=== PATIENT | female | born 1965 | race Caucasian/White ===

== ENCOUNTER 2020-04-29 07:46 | Outpatient (CLI) | payer OTHER, SELFPAY ==
--- NOTE | ~2020-04-29 | MM_ITS ---
EXAMINATION: MM screening [facility] BI w steve HISTORY: Screening TECHNIQUE: Craniocaudal and mediolateral oblique 3-D tomosynthesis images were obtained and synthetic 2-D images were generated. CAD analysis was submitted and interpreted. COMPARISON: Comparison to multiple prior studies sequentially, with oldest reviewed study dated 03/23. BREAST PARENCHYMAL COMPOSITION: There are scattered areas of fibroglandular density. FINDINGS: There is no evidence of suspicious mass, calcification, or architectural distortion to sugg est malignancy in either breast. There has been no suspicious interval change. IMPRESSION: 1. No mammographic evidence of malignancy. 2. Recommend routine screening mammography in one year. BI-RADS Category 1: Negative Reviewed, dictated and finalized at location A.
== END 2020-04-29 07:47 | disposition home or self-care (01) ==
PROVIDERS: PCP Family Medicine; Visit Provider Family Medicine
DX: Z12.31 Encounter for screening mammogram for malignant neoplasm of breast (principal)
CPT/HCPCS: 77063; 77067

== ENCOUNTER 2020-07-21 06:42 | Outpatient (NON) | payer OTHER, SELFPAY ==
[2020-07-24 01:47] LABS: SARS-CoV-2 RNA PCR Negative
== END 2020-07-21 06:43 ==
LOC: ANHCOVIDDT 06:56
PROVIDERS: PCP Family Medicine; Visit Provider Family Medicine
DX: Z20.828 Contact with and (suspected) exposure to other viral communicable diseases (principal)
CPT/HCPCS: 87635; C9803; U0003

== ENCOUNTER 2020-09-23 14:51 | Outpatient (CLI) | payer OTHER, SELFPAY ==
[2020-09-23 15:57] LABS: Basophils Percent Auto 0.4 % (0.2-1.2); Eosinophils Absolute Auto 0.2 K/mm3 (0-0.3); Eosinophils Percent Auto 2.1 % (0-4.4); Hematocrit 38.9 % (37.0-47.0); Hemoglobin 13.2 g/dL (12.0-15.0); Immature Granulocyte Absolute 0.03 K/mm3 (0.00-0.031); Immature Granulocyte Percent A 0.3 % (0-0.5); Lymphocytes Absolute Auto 2.88 K/mm3 (0.9-3.2); Lymphocytes Percent Auto 27.1 % (18.3-44.2); Mean Corpuscular HGB Conc 33.9 g/dl (32-36); Mean Corpuscular Hemoglobin 31.9 pg (26-34); Mean Platelet Volume 10.3 fl (7.4-10.4); Monocytes Absolute Auto 0.8 K/mm3 (0.1-0.6); Monocytes Percent Auto 7.9 % (2.6-8.5); Neutrophils Absolute Auto 6.6 K/mm3 (1.3-6.7); Neutrophils Percent Auto 62.2 % (45.5-73.1); Platelet Count Result 316 k/mm3 (150-375); Red Blood Count 4.14 M/mm3 (4.2-5.4); Red Cell Distribution Width 12.3 % (11.5-14.5); White Blood Count 10.6 K/mm3 (4.5-10.0)
[2020-09-23 16:30] LABS: Iron 84 ug/dL (37-170)
[2020-09-23 16:40] LABS: Percent Iron Saturation 27 % (20-50)
[2020-09-23 17:06] LABS: Folic Acid 14.6 ng/mL (2.76->20)
[2020-09-24 09:43] LABS: Hemoglobin A1C 5.5 % (<5.7)
== END 2020-09-23 14:52 | disposition home or self-care (01) ==
LOC: ANHLAB 14:53
PROVIDERS: Family Provider Family Medicine; PCP Family Medicine; Visit Provider Family Medicine
DX: D64.9 Anemia, unspecified (principal); R73.01 Impaired fasting glucose
CPT/HCPCS: 36415; 82607; 82728; 82746; 83036; 83540; 83550; 85025

== ENCOUNTER 2020-12-10 16:01 | Outpatient (CLI) | payer OTHER, SELFPAY ==
[2020-12-10 16:41] LABS: Basophils Percent Auto 0.5 % (0.2-1.2); Eosinophils Absolute Auto 0.2 K/mm3 (0-0.3); Eosinophils Percent Auto 2.3 % (0-4.4); Hematocrit 43.4 % (37.0-47.0); Hemoglobin 14.5 g/dL (12.0-15.0); Immature Granulocyte Absolute 0.03 K/mm3 (0.00-0.031); Immature Granulocyte Percent A 0.4 % (0-0.5); Lymphocytes Absolute Auto 2.35 K/mm3 (0.9-3.2); Lymphocytes Percent Auto 29.4 % (18.3-44.2); Mean Corpuscular HGB Conc 33.4 g/dl (32-36); Mean Corpuscular Hemoglobin 31.6 pg (26-34); Mean Corpuscular Volume 94.6 fl (80-100); Mean Platelet Volume 10.6 fl (7.4-10.4); Monocytes Absolute Auto 0.8 K/mm3 (0.1-0.6); Monocytes Percent Auto 9.5 % (2.6-8.5); Neutrophils Absolute Auto 4.6 K/mm3 (1.3-6.7); Neutrophils Percent Auto 57.9 % (45.5-73.1); Platelet Count Result 242 k/mm3 (150-375); Red Blood Count 4.59 M/mm3 (4.2-5.4); Red Cell Distribution Width 12.1 % (11.5-14.5)
[2020-12-10 16:52] LABS: Alanine Aminotransferase 39 U/L (4-35); Albumin Level 4.7 g/dL (3.5-5.1); Alkaline Phosphatase 83 U/L (38-126); Anion Gap 8 mmol/L (8-16); Aspartate Amino Transferase 38 U/L (14-36); Bilirubin,Total 0.5 mg/dL (0.2-1.3); Blood Urea Nitrogen 26 mg/dL (7-17); Calcium 9.5 mg/dL (8.4-10.2); Carbon Dioxide 28 mmol/L (22-30); Chloride 103 mmol/L (98-107); Cholesterol 313 mg/dL (0-200); Estimated Glomerular Filt Rate > 60; Glucose 105 mg/dL (65-105); HDL Direct 44 mg/dL; Potassium 3.9 mmol/L (3.4-5.0); Sodium 139 mmol/L (137-145); Triglycerides 336 mg/dL (<150)
[2020-12-10 17:03] LABS: LDL Cholesterol Direct 159 mg/dL
== END 2020-12-10 16:02 | disposition home or self-care (01) ==
PROVIDERS: PCP Family Medicine; Visit Provider Family Medicine
DX: E55.9 Vitamin D deficiency, unspecified (principal); E78.2 Mixed hyperlipidemia
CPT/HCPCS: 36415; 80053; 80061; 82306; 84443; 85025

== ENCOUNTER 2021-06-24 07:29 | Outpatient (CLI) | payer OTHER, SELFPAY ==
--- NOTE | ~2021-06-24 | MM_ITS ---
EXAMINATION: MM screening earl BI w steve HISTORY: Screening mammogram TECHNIQUE: Craniocaudal and mediolateral oblique 3-D tomosynthesis images were obtained and synthetic 2-D images were generated. CAD analysis was submitted and interpreted. COMPARISON: 05/26/2020, 04/17/2019, 04/11/2018 bilateral screening mammogram examinations BREAST PARENCHYMAL COMPOSITION: There are scattered areas of fibroglandular density. FINDINGS: There is no evidence of suspicious mass, calcification, or architectural distortion to sugg est malignancy in either breast. There has been no suspicious interval change. IMPRESSION: 1. No mammographic evidence of malignancy. 2. Recommend routine screening mammography in one year. BI-RADS Category 1: Negative Reviewed, dictated and finalized at location A.
== END 2021-06-24 07:30 | disposition home or self-care (01) ==
LOC: ANHIMG 07:32
PROVIDERS: PCP Family Medicine; Visit Provider Family Medicine
DX: Z12.31 Encounter for screening mammogram for malignant neoplasm of breast (principal)
CPT/HCPCS: 77063; 77067

== ENCOUNTER 2021-09-20 07:53 | Outpatient (CLI) | payer OTHER, SELFPAY ==
[2021-09-20 09:05] LABS: Basophils Absolute Auto 0.1 K/mm3 (0.0-0.1); Basophils Percent Auto 0.8 % (0.2-1.2); Eosinophils Absolute Auto 0.2 K/mm3 (0-0.3); Eosinophils Percent Auto 2.3 % (0-4.4); Hematocrit 41.9 % (37.0-47.0); Hemoglobin 13.9 g/dL (12.0-15.0); Immature Granulocyte Absolute 0.03 K/mm3 (0.00-0.031); Immature Granulocyte Percent A 0.5 % (0-0.5); Lymphocytes Absolute Auto 1.74 K/mm3 (0.9-3.2); Lymphocytes Percent Auto 27.1 % (18.3-44.2); Mean Corpuscular HGB Conc 33.2 g/dl (32-36); Mean Corpuscular Hemoglobin 31.2 pg (26-34); Mean Corpuscular Volume 93.9 fl (80-100); Mean Platelet Volume 10.6 fl (7.4-10.4); Monocytes Absolute Auto 0.6 K/mm3 (0.1-0.6); Monocytes Percent Auto 9.8 % (2.6-8.5); Neutrophils Absolute Auto 3.8 K/mm3 (1.3-6.7); Neutrophils Percent Auto 59.5 % (45.5-73.1); Platelet Count Result 290 k/mm3 (150-375); Red Blood Count 4.46 M/mm3 (4.2-5.4); Red Cell Distribution Width 12.5 % (11.5-14.5); White Blood Count 6.4 K/mm3 (4.5-10.0)
[2021-09-20 09:16] LABS: Alanine Aminotransferase 37 U/L (4-35); Albumin Level 4.6 g/dL (3.5-5.1); Alkaline Phosphatase 104 U/L (38-126); Anion Gap 8 mmol/L (8-16); Aspartate Amino Transferase 30 U/L (14-36); Bilirubin,Total 0.8 mg/dL (0.2-1.3); Blood Urea Nitrogen 14 mg/dL (7-17); Calcium 9.4 mg/dL (8.4-10.2); Carbon Dioxide 29 mmol/L (22-30); Chloride 103 mmol/L (98-107); Cholesterol 267 mg/dL (0-200); Estimated Glomerular Filt Rate > 60; Glucose 105 mg/dL (65-110); HDL Direct 48 mg/dL; Sodium 140 mmol/L (137-145); Triglycerides 176 mg/dL (<150)
[2021-09-20 09:31] LABS: LDL Cholesterol Direct 176 mg/dL
[2021-09-20 09:53] LABS: Vitamin D 25 Hydroxy 24.7 ng/mL
== END 2021-09-20 07:54 | disposition home or self-care (01) ==
PROVIDERS: PCP Family Medicine; Visit Provider Family Medicine
DX: E55.9 Vitamin D deficiency, unspecified (principal); E78.2 Mixed hyperlipidemia
CPT/HCPCS: 36415; 80053; 80061; 82306; 85025

== ENCOUNTER 2021-09-26 13:01 | Outpatient (CLI) | payer OTHER, SELFPAY ==
[2021-09-26 13:20] LABS: Basophils Absolute Auto 0.1 K/mm3 (0.0-0.1); Basophils Percent Auto 0.5 % (0.2-1.2); Eosinophils Absolute Auto 0.1 K/mm3 (0-0.3); Eosinophils Percent Auto 1.4 % (0-4.4); Hematocrit 42.3 % (37.0-47.0); Hemoglobin 13.8 g/dL (12.0-15.0); Immature Granulocyte Absolute 0.02 K/mm3 (0.00-0.031); Immature Granulocyte Percent A 0.2 % (0-0.5); Lymphocytes Percent Auto 23.7 % (18.3-44.2); Mean Corpuscular HGB Conc 32.6 g/dl (32-36); Mean Corpuscular Hemoglobin 31.4 pg (26-34); Mean Corpuscular Volume 96.4 fl (80-100); Mean Platelet Volume 10.2 fl (7.4-10.4); Monocytes Absolute Auto 0.6 K/mm3 (0.1-0.6); Monocytes Percent Auto 6.8 % (2.6-8.5); Neutrophils Absolute Auto 6.3 K/mm3 (1.3-6.7); Neutrophils Percent Auto 67.4 % (45.5-73.1); Platelet Count Result 289 k/mm3 (150-375); Red Blood Count 4.39 M/mm3 (4.2-5.4); Red Cell Distribution Width 12.5 % (11.5-14.5); White Blood Count 9.3 K/mm3 (4.5-10.0)
[2021-09-26 14:01] LABS: Thyroid Stimulating Hormone 0.823 uIU/mL (0.465-4.680)
[2021-09-26 14:23] LABS: Vitamin B12 > 1000.0 pg/mL (239-931)
== END 2021-09-26 13:02 | disposition home or self-care (01) ==
LOC: ANHLAB 13:04
PROVIDERS: PCP Family Medicine; Visit Provider Family Medicine
DX: E53.8 Deficiency of other specified B group vitamins (principal); R53.83 Other fatigue; E78.2 Mixed hyperlipidemia; E55.9 Vitamin D deficiency, unspecified; R73.01 Impaired fasting glucose
CPT/HCPCS: 36415; 82607; 84443; 85025

== ENCOUNTER 2021-11-29 00:04 | Day surgery (SDC) | payer OTHER, SELFPAY ==
[2021-11-18 12:50] VITALS: BMI 37.3
[2021-11-29 07:57] VITALS: BP 141/94; PULSE 92; RESP 18; TEMP 36.1; O2SAT 95
[2021-11-29] MEDS: LACTATED RINGERS 1,000 ML 150 ML IV CONT (08:00)
--- NOTE | 2021-11-29 08:00 | WPDGICN ---
Assessment and Plan Assessment and plan (1) Encounter for screening colonoscopy: Code(s): Z12.11 - Encounter for screening for malignant neoplasm of colon Status: Acute Assessment and Plan: Patient presents for screening colonoscopy. She appears to be at average risk for colon polyps. Further recommendations will be given after endoscopy. GI Consult Note Consult date/time: 11/29/21 08:00 HPI: Ivet Delaney is a 55 year old female Presents for screening colonoscopy. Patient's current weight appetite bowel movements are normal. She denies abdominal pain. She has had no bleeding. Family history is noncontributory. Patient reports distant history of diverticulitis. Her last colonoscopy was more than 10 years ago. She presents today for neoplasia screening. Review of Systems Review of Systems: All systems reviewed & are unremarkable except as noted in HPI and below PMFSH Social History Social History Smoking packs per day: 1 Smoking cigarettes per day: 20.0 Years smoked: 20 Smoking pack-years: 20.00 Smoking status: Former smoker Tobacco type: cigarettes Alcohol intake: current Substance use: never Substance use type: does not use Living arrangements: with family Spiritual care concerns: No Meds Home Medications and Allergies Home Medications Medication Instructions Recorded Confirmed Type bupropion HCl 300 mg PO DAILY 11/18/21 11/29/21 History Allergies Allergy/AdvReac Type Severity Reaction Status Date / Time Sulfa (Sulfonamide Allergy Intermediate Hives Verified 11/29/21 07:53 Antibiotics) Vital Signs Vital Signs - 24 hr 11/29/21 07:57 Temperature 97 F L Pulse Rate 92 Respiratory Rate 18 Blood Pressure 141/94 H Pulse Oximetry 95 Exam Narrative: Physical exam reveals patient be obese. She is alert vital signs stable. HEENT exam is unremarkable. Lungs are clear. Heart without murmur. Abdomen is obese. Bowel sounds are present soft nontender with no organomegaly. Digital external rectal exam is normal.
--- NOTE | 2021-11-29 08:31 | P.PNAN_ITS ---
Anes - Initial Pre Proc Eval Procedure: Operation Date: 11/29/21 09:00 Proposed Procedures p Screening Colonoscopy - Francis Brown MD Date/Time: 11/29/21 08:31 Surgeon: Francis Brown MD Pre Op Diagnosis: neoplasm screening Patient Data Age: 55 Gender: F Height: 1.7 m Weight: 111.8 kg Last Vital Signs Temp 97 F L 11/29/21 07:57 Pulse 92 11/29/21 07:57 Resp 18 11/29/21 07:57 BP 141/94 H 11/29/21 07:57 Pulse Ox 95 11/29/21 07:57 Allergies Allergy/AdvReac Type Severity Reaction Status Date / Time Sulfa (Sulfonamide Allergy Intermediate Hives Verified 11/29/21 07:53 Antibiotics) Home Medications Medication Instructions Recorded Confirmed Type bupropion HCl 300 mg PO DAILY 11/18/21 11/29/21 History Patient hx anesthesia problems: none Family hx anesthesia problems: none Results Review: All pre-operative results and documents have been reviewed as part of the pre-operative evaluation. [facility], [facility] Social History Social History Smoking packs per day: 1 Smoking cigarettes per day: 20.0 Years smoked: 20 Smoking pack-years: 20.00 Smoking status: Former smoker Tobacco type: cigarettes Alcohol intake: current Substance use: never Substance use type: does not use Living arrangements: with family Spiritual care concerns: No Anes - Eval Final PreProcedure Day of Procedure 11/29/21 08:31 Patient weight: obese Heart: regular rate and rhythm Lungs: clear to auscultation Airway: Mallampati scale class III Neurological: alert and oriented Last oral intake: >/= 8 hours ASA classification: III Emergent: no Anesthetic plan: proceed Anesthesia type and monitoring: general GIVS and standard monitoring Results Review: All pre-operative results and documents have been reviewed as part of the pre-operative evaluation. Informed Consent: The patient's anesthetic plan and its attendant risks and benefits were discussed with the patient/family/POA. Questions were solicited and answers provided to the satisfaction of the patient/family/POA.
[2021-11-29 09:30] VITALS: BP 98/65; PULSE 86; RESP 18; O2SAT 93
[2021-11-29 09:40] VITALS: BP 110/72; PULSE 88; RESP 20; O2SAT 95
[2021-11-29 09:50] VITALS: BP 123/82; PULSE 84; RESP 22; O2SAT 95
== END 2021-11-29 10:00 | disposition home or self-care (01) ==
PROVIDERS: PCP Family Medicine; Visit Provider Internal Medicine Gastroenterology
PROC: 0DJD8ZZ Inspection of Lower Intestinal Tract, Via Natural or Artificial Opening Endoscopic (ICD-10-PCS; CPT 45378; principal; 2021-11-29 09:00)
DX: Z12.11 Encounter for screening for malignant neoplasm of colon (principal); K57.30 Diverticulosis of large intestine without perforation or abscess without bleeding; K52.89 Other specified noninfective gastroenteritis and colitis; K64.8 Other hemorrhoids; Z87.891 Personal history of nicotine dependence; E66.9 Obesity, unspecified; Z68.38 Body mass index [BMI] 38.0-38.9, adult
CPT/HCPCS: 45380; 88305; J2704; J7120

== ENCOUNTER 2022-02-28 10:18 | Outpatient (CLI) | payer OTHER, SELFPAY ==
--- NOTE | 2022-02-28 11:30 | NEURO_ITS ---
Impression: # Complains of pain and numbness of hands. # Normal nerve conduction study. # No Carpal Tunnel Syndrome or ulnar neuropathy. # Normal needle/EMG exam. # Clinical correlation recommended. Nerve Conduction Studies Anti Sensory Summary Table Stim Site NR Peak (ms) P-T Amp (?V) Site1 Site2 Delta-P (ms) Dist (cm) Gumaro (m/s) Left Median Anti Sensory (2-3nd Digit) Wrist 2.9 62.1 Wrist 2-3nd Digit 2.9 14.0 48 Wrist 3.1 85.3 Wrist 2-3nd Digit 2.9 14.0 48 Right Median Anti Sensory (2-3nd Digit) Wrist 3.5 35.5 Wrist 2-3nd Digit 3.5 14.0 40 Wrist 3.5 56.0 Wrist 2-3nd Digit 3.5 14.0 40 Left Radial Anti Sensory (Base 1st Digit) Wrist 1.8 41.3 Wrist Base 1st Digit 1.8 0.0 Right Radial Anti Sensory (Base 1st Digit) Wrist 2.1 34.8 Wrist Base 1st Digit 2.1 0.0 Left Ulnar Anti Sensory (5th Digit) Wrist 2.2 66.0 Wrist 5th Digit 2.2 14.0 64 Right Ulnar Anti Sensory (5th Digit) Wrist 2.3 63.3 Wrist 5th Digit 2.3 14.0 61 Motor Summary Table Stim Site NR Onset (ms) O-P Amp (mV) Site1 Site2 Delta-0 (ms) Dist (cm) Gumaro (m/s) Left Median Motor (Abd Poll Brev) Wrist 2.8 7.3 Elbow Wrist 5.1 29.0 57 Elbow 7.9 6.7 Right Median Motor (Abd Poll Brev) Wrist 3.0 5.0 Elbow Wrist 5.2 28.0 54 Elbow 8.2 4.3 Left Ulnar Motor (Abd Dig Minimi) Wrist 2.4 6.5 A Elbow Wrist 5.0 29.0 58 A Elbow 7.4 5.5 Right Ulnar Motor (Abd Dig Minimi) Wrist 2.0 6.1 A Elbow Wrist 5.0 30.0 60 A Elbow 7.0 7.1 F Wave Studies NR F-Lat (ms) L-R F-Lat (ms) Left Median (Mrkrs) (Abd Poll Brev) 26.64 0.33 Right Median (Mrkrs) (Abd Poll Brev) 26.97 0.33 Left Ulnar (Mrkrs) (Abd Dig Min) 26.41 0.00 Right Ulnar (Mrkrs) (Abd Dig Min) 26.41 0.00 EMG Side Muscle Nerve Root Ins Act Fibs Amp Dur Recrt Comment Right 1stDorInt Ulnar C8-T1 Nml Nml Nml Nml Nml Right Ext Indicis Radial (Post Int) C7-8 Nml Nml Nml Nml Nml Right Ext Digitorum Radial (Post Int) C7-8 Nml Nml Nml Nml Nml Right BrachioRad Radial C5-6 Nml Nml Nml Nml Nml Right PronatorTeres Median C6-7 Nml Nml Nml Nml Nml Right Abd Poll Brev Median C8-T1 Nml Nml Nml Nml Nml Left 1stDorInt Ulnar C8-T1 Nml Nml Nml Nml Nml Left Ext Indicis Radial (Post Int) C7-8 Nml Nml Nml Nml Nml Left Ext Digitorum Radial (Post Int) C7-8 Nml Nml Nml Nml Nml Left BrachioRad Radial C5-6 Nml Nml Nml Nml Nml Left PronatorTeres Median C6-7 Nml Nml Nml Nml Nml Left Abd Poll Brev Median C8-T1 Nml Nml Nml Nml Nml MTDD
== END 2022-02-28 10:19 | disposition home or self-care (01) ==
PROVIDERS: PCP Family Medicine; Visit Provider Family Medicine
DX: R20.0 Anesthesia of skin (principal)
CPT/HCPCS: 95886; 95911

== ENCOUNTER 2022-04-05 07:25 | Outpatient (CLI) | payer OTHER, SELFPAY ==
[2022-04-05 08:00] LABS: Basophils Percent Auto 0.4 % (0.2-1.2); Eosinophils Absolute Auto 0.2 K/mm3 (0-0.3); Eosinophils Percent Auto 2.5 % (0-4.4); Hematocrit 39.1 % (37.0-47.0); Hemoglobin 12.8 g/dL (12.0-15.0); Immature Granulocyte Absolute 0.02 K/mm3 (0.00-0.031); Immature Granulocyte Percent A 0.3 % (0-0.5); Lymphocytes Absolute Auto 1.74 K/mm3 (0.9-3.2); Lymphocytes Percent Auto 25.2 % (18.3-44.2); Mean Corpuscular HGB Conc 32.7 g/dl (32-36); Mean Corpuscular Hemoglobin 31.2 pg (26-34); Mean Corpuscular Volume 95.4 fl (80-100); Mean Platelet Volume 10.7 fl (7.4-10.4); Monocytes Absolute Auto 0.6 K/mm3 (0.1-0.6); Monocytes Percent Auto 8.8 % (2.6-8.5); Neutrophils Absolute Auto 4.3 K/mm3 (1.3-6.7); Neutrophils Percent Auto 62.8 % (45.5-73.1); Platelet Count Result 239 k/mm3 (150-375); Red Cell Distribution Width 12.8 % (11.5-14.5); White Blood Count 6.9 K/mm3 (4.5-10.0)
[2022-04-05 08:20] LABS: Alanine Aminotransferase 29 U/L (6-35); Alkaline Phosphatase 98 U/L (38-126); Anion Gap 10 mmol/L (8-16); Aspartate Amino Transferase 22 U/L (14-36); Bilirubin,Total 0.4 mg/dL (0.2-1.3); Blood Urea Nitrogen 14 mg/dL (7-17); Calcium 9.1 mg/dL (8.4-10.2); Carbon Dioxide 25 mmol/L (22-30); Chloride 102 mmol/L (98-107); Cholesterol 171 mg/dL (0-200); Estimated Glomerular Filt Rate > 60; Glucose 107 mg/dL (65-110); HDL Direct 43 mg/dL; Potassium 4.2 mmol/L (3.4-5.0); Sodium 137 mmol/L (137-145); Triglycerides 174 mg/dL (<150)
[2022-04-05 08:37] LABS: LDL Cholesterol Direct 94 mg/dL
[2022-04-05 10:42] LABS: Vitamin D 25 Hydroxy 59.1 ng/mL
== END 2022-04-05 07:26 | disposition home or self-care (01) ==
LOC: ANHLAB 07:27
PROVIDERS: PCP Family Medicine; Visit Provider Family Medicine
DX: E78.5 Hyperlipidemia, unspecified (principal); Z00.00 Encounter for general adult medical examination without abnormal findings; F41.9 Anxiety disorder, unspecified; F32.A Depression, unspecified; D68.51 Activated protein C resistance; G47.00 Insomnia, unspecified; F41.8 Other specified anxiety disorders; E55.9 Vitamin D deficiency, unspecified
CPT/HCPCS: 36415; 80053; 80061; 82306; 84443; 85025

== ENCOUNTER 2022-07-03 14:50 | Outpatient (CLI) | payer OTHER, SELFPAY ==
--- NOTE | ~2022-07-03 | MM_ITS ---
EXAMINATION: MM screening earl BI w steve HISTORY: Screening mammogram TECHNIQUE: Craniocaudal and mediolateral oblique 3-D tomosynthesis images were obtained and synthetic 2-D images were generated. CAD analysis was submitted and interpreted. COMPARISON: 06/24/2021, 05/16/2020, 04/17/2019 bilateral screening mammogram examinations BREAST PARENCHYMAL COMPOSITION: There are scattered areas of fibroglandular density. FINDINGS: There is no evidence of suspicious mass, calcification, or architectural distortion to sugg est malignancy in either breast. There has been no suspicious interval change. IMPRESSION: 1. No mammographic evidence of malignancy. 2. Recommend routine screening mammography in one year. BI-RADS Category 1: Negative Reviewed, dictated and finalized at location A. INSTALLER
== END 2022-07-03 14:51 | disposition home or self-care (01) ==
LOC: ANHIMG 14:51
PROVIDERS: PCP Family Medicine; Visit Provider Family Medicine
DX: Z12.31 Encounter for screening mammogram for malignant neoplasm of breast (principal)
CPT/HCPCS: 77063; 77067

== ENCOUNTER 2022-12-29 16:00 | Outpatient (CLI) | payer OTHER, SELFPAY ==
--- NOTE | ~2022-12-29 | XR_ITS ---
EXAMINATION: XR cervical spine min 6V DATE: 12/29/2022 16:22 INDICATION: Neck pain. TECHNIQUE: 6 views of cervical spine were obtained. COMPARISON: None. FINDINGS: There is 7 degrees levocurvature of cervicothoracic spine. Vertebral body heights are jesús l. There is mildly decreased disc height at C5-C6 and moderately decreased disc height at C6-C7. Ther e is multilevel uncovertebral joint osteophytic arthritis, severe on the left at C5-C6 and bilaterall y at C6-C7. There is multilevel facet joint osteoarthritis, moderate on the right at C3-C4 and C4-C5. There is mild right neural foraminal stenosis at C3-C4, C4-C5, and C6-C7 and mild left neural forami nal stenosis at C5-C6 and C6-C7. There is mild central canal stenosis at C5-C6 and C6-C7. No preverte bral soft tissue swelling. IMPRESSION: 1. Moderate cervical spondylosis. Reviewed, dictated and finalized at location A.
== END 2022-12-29 16:01 | disposition home or self-care (01) ==
LOC: ANHIMG 16:02
PROVIDERS: PCP Family Medicine; Visit Provider Nurse Practitioner
DX: M47.892 Other spondylosis, cervical region (principal)
CPT/HCPCS: 72052

== ENCOUNTER 2023-01-12 08:23 | Outpatient (CLI) | payer OTHER, SELFPAY ==
[2023-01-12 08:46] LABS: Basophils Absolute Auto 0.1 K/mm3 (0.0-0.1); Basophils Percent Auto 0.7 % (0.2-1.2); Eosinophils Absolute Auto 0.2 K/mm3 (0-0.3); Hemoglobin 14.4 g/dL (12.0-15.0); Immature Granulocyte Absolute 0.03 K/mm3 (0.00-0.031); Immature Granulocyte Percent A 0.4 % (0-0.5); Lymphocytes Absolute Auto 1.82 K/mm3 (0.9-3.2); Lymphocytes Percent Auto 24.6 % (18.3-44.2); Mean Corpuscular HGB Conc 33.5 g/dl (32-36); Mean Corpuscular Hemoglobin 31.6 pg (26-34); Mean Corpuscular Volume 94.5 fl (80-100); Mean Platelet Volume 10.4 fl (7.4-10.4); Monocytes Absolute Auto 0.7 K/mm3 (0.1-0.6); Monocytes Percent Auto 8.9 % (2.6-8.5); Neutrophils Absolute Auto 4.7 K/mm3 (1.3-6.7); Neutrophils Percent Auto 63.4 % (45.5-73.1); Platelet Count Result 269 k/mm3 (150-375); Red Blood Count 4.55 M/mm3 (4.2-5.4); Red Cell Distribution Width 12.3 % (11.5-14.5); White Blood Count 7.4 K/mm3 (4.5-10.0)
[2023-01-12 08:57] LABS: Alanine Aminotransferase 36 U/L (6-35); Albumin Level 4.5 g/dL (3.5-5.1); Alkaline Phosphatase 110 U/L (38-126); Anion Gap 8 mmol/L (8-16); Aspartate Amino Transferase 29 U/L (14-36); Bilirubin,Total 0.7 mg/dL (0.2-1.3); Blood Urea Nitrogen 13 mg/dL (7-17); Calcium 9.1 mg/dL (8.4-10.2); Carbon Dioxide 27 mmol/L (22-30); Chloride 102 mmol/L (98-107); Cholesterol 182 mg/dL (0-200); Estimated Glomerular Filt Rate > 60; Glucose 102 mg/dL (65-110); HDL Direct 51 mg/dL; Potassium 4.4 mmol/L (3.4-5.0); Sodium 137 mmol/L (137-145); Triglycerides 144 mg/dL (<150)
[2023-01-12 09:11] LABS: LDL Cholesterol Direct 111 mg/dL
[2023-01-12 09:33] LABS: Hemoglobin A1C 5.9 % (<5.7)
== END 2023-01-12 08:24 | disposition home or self-care (01) ==
LOC: ANHLAB 08:25
PROVIDERS: PCP Family Medicine; Visit Provider Nurse Practitioner
DX: E78.5 Hyperlipidemia, unspecified (principal); R73.9 Hyperglycemia, unspecified
CPT/HCPCS: 36415; 80053; 80061; 83036; 85025

== ENCOUNTER 2023-05-08 09:47 | Outpatient (CLI) | payer OTHER, SELFPAY ==
[2023-05-08 12:59] LABS: Hematocrit 41.6 % (37.0-47.0); Hemoglobin 13.5 g/dL (12.0-15.0); Mean Corpuscular HGB Conc 32.5 g/dl (32-36); Mean Corpuscular Volume 95.6 fl (80-100); Platelet Count Result 273 k/mm3 (150-375); Red Blood Count 4.35 M/mm3 (4.2-5.4); Red Cell Distribution Width 12.3 % (11.5-14.5); White Blood Count 5.7 K/mm3 (4.5-10.0)
[2023-05-08 13:00] LABS: Basophils Absolute Auto 0.1 K/mm3 (0.0-0.1); Basophils Percent Auto 1.1 % (0.2-1.2); Eosinophils Absolute Auto 0.2 K/mm3 (0-0.3); Eosinophils Percent Auto 2.8 % (0-4.4); Immature Granulocyte Absolute 0.01 K/mm3 (0.00-0.031); Immature Granulocyte Percent A 0.2 % (0-0.5); Lymphocytes Absolute Auto 1.97 K/mm3 (0.9-3.2); Lymphocytes Percent Auto 34.7 % (18.3-44.2); Monocytes Absolute Auto 0.5 K/mm3 (0.1-0.6); Monocytes Percent Auto 9.5 % (2.6-8.5); Neutrophils Absolute Auto 2.9 K/mm3 (1.3-6.7); Neutrophils Percent Auto 51.7 % (45.5-73.1)
[2023-05-08 13:15] LABS: Alanine Aminotransferase 30 U/L (6-35); Albumin Level 4.2 g/dL (3.5-5.1); Alkaline Phosphatase 97 U/L (38-126); Anion Gap 5 mmol/L (8-16); Aspartate Amino Transferase 40 U/L (14-36); Bilirubin,Total 0.5 mg/dL (0.2-1.3); Blood Urea Nitrogen 15 mg/dL (7-17); Carbon Dioxide 28 mmol/L (22-30); Chloride 105 mmol/L (98-107); Cholesterol 193 mg/dL (0-200); Estimated Glomerular Filt Rate > 60; Glucose 98 mg/dL (65-110); HDL Direct 44 mg/dL; Potassium 4.1 mmol/L (3.4-5.0); Sodium 138 mmol/L (137-145); Triglycerides 157 mg/dL (<150)
[2023-05-08 13:26] LABS: LDL Cholesterol Direct 105 mg/dL
[2023-05-08 13:33] LABS: Hemoglobin A1C 5.7 % (<5.7)
[2023-05-08 13:46] LABS: Thyroid Stimulating Hormone 0.969 uIU/mL (0.465-4.680)
[2023-05-11 10:24] LABS: Vitamin D 1,25 (OH)2 Total 26 pg/mL (18-72); Vitamin D2 1,25 (OH)2 <8 pg/mL; Vitamin D3 1,25 (OH)2 26 pg/mL
== END 2023-05-08 09:48 | disposition home or self-care (01) ==
LOC: ANHGOSHLAB 09:49
PROVIDERS: PCP Family Medicine; Visit Provider Nurse Practitioner Family
DX: Z00.00 Encounter for general adult medical examination without abnormal findings (principal); E55.9 Vitamin D deficiency, unspecified; I10 Essential (primary) hypertension; R73.09 Other abnormal glucose
CPT/HCPCS: 36415; 80053; 80061; 82607; 82652; 83036; 84443; 85025

== ENCOUNTER 2023-12-10 07:46 | Outpatient (CLI) | payer OTHER, SELFPAY ==
--- NOTE | ~2023-12-10 | MM_ITS ---
EXAMINATION: MM screening [facility] BI w steve HISTORY: Screening TECHNIQUE: Craniocaudal and mediolateral oblique 3-D tomosynthesis images were obtained and synthetic 2-D images were generated. CAD analysis was submitted and interpreted. COMPARISON: Comparison to multiple prior studies sequentially, with oldest reviewed study dated 02/20. BREAST PARENCHYMAL COMPOSITION: Not dense: There are scattered areas of fibroglandular density. FINDINGS: There is no evidence of suspicious mass, calcification, or architectural distortion to sugg est malignancy in either breast. There has been no suspicious interval change. IMPRESSION: 1. No mammographic evidence of malignancy. 2. Recommend routine screening mammography in one year. BI-RADS Category 1: Negative Reviewed, dictated and finalized at location A.
[2023-12-10 08:34] LABS: Alanine Aminotransferase 36 U/L (6-35); Albumin Level 4.5 g/dL (3.5-5.1); Alkaline Phosphatase 112 U/L (38-126); Anion Gap 6 mmol/L (4-12); Aspartate Amino Transferase 29 U/L (14-36); Bilirubin,Total 0.7 mg/dL (0.2-1.3); Blood Urea Nitrogen 16 mg/dL (7-17); Calcium 9.4 mg/dL (8.4-10.2); Carbon Dioxide 27 mmol/L (22-30); Chloride 105 mmol/L (98-107); Estimated Glomerular Filt Rate > 60; Glucose 112 mg/dL (65-110); Potassium 4.2 mmol/L (3.4-5.0); Sodium 138 mmol/L (137-145)
[2023-12-10 08:44] LABS: Hemoglobin A1C 5.7 % (<5.7)
[2023-12-10 09:08] LABS: Vitamin D 25 Hydroxy 31.1 ng/mL
== END 2023-12-10 07:47 | disposition home or self-care (01) ==
PROVIDERS: PCP Family Medicine; Visit Provider Family Medicine
DX: Z12.31 Encounter for screening mammogram for malignant neoplasm of breast (principal); R73.03 Prediabetes; E78.5 Hyperlipidemia, unspecified; F41.8 Other specified anxiety disorders; E55.9 Vitamin D deficiency, unspecified; Z79.899 Other long term (current) drug therapy
CPT/HCPCS: 36415; 77063; 77067; 80053; 82306; 83036

== ENCOUNTER 2024-06-13 09:44 | Outpatient (CLI) | payer OTHER, SELFPAY ==
[2024-06-13 17:57] LABS: Basophils Absolute Auto 0.1 K/mm3 (0.0-0.1); Basophils Percent Auto 0.8 % (0.2-1.2); Eosinophils Absolute Auto 0.2 K/mm3 (0-0.3); Eosinophils Percent Auto 2.5 % (0-4.4); Hematocrit 42.6 % (37.0-47.0); Hemoglobin 13.7 g/dL (12.0-15.0); Immature Granulocyte Absolute 0.01 K/mm3 (0.00-0.031); Immature Granulocyte Percent A 0.2 % (0-0.5); Lymphocytes Percent Auto 28.8 % (18.3-44.2); Mean Corpuscular HGB Conc 32.2 g/dl (32-36); Mean Corpuscular Hemoglobin 31.4 pg (26-34); Mean Corpuscular Volume 97.7 fl (80-100); Mean Platelet Volume 11.8 fl (7.4-10.4); Monocytes Absolute Auto 0.5 K/mm3 (0.1-0.6); Monocytes Percent Auto 8.8 % (2.6-8.5); Neutrophils Absolute Auto 3.5 K/mm3 (1.3-6.7); Neutrophils Percent Auto 58.9 % (45.5-73.1); Platelet Count Result 267 k/mm3 (150-375); Red Blood Count 4.36 M/mm3 (4.2-5.4); Red Cell Distribution Width 12.5 % (11.5-14.5); White Blood Count 5.9 K/mm3 (4.5-10.0)
[2024-06-13 18:10] LABS: Cholesterol 143 mg/dL (0-200); HDL Direct 35 mg/dL; Triglycerides 99 mg/dL (<150)
[2024-06-13 18:33] LABS: LDL Cholesterol Direct 73 mg/dL
[2024-06-13 18:38] LABS: Hemoglobin A1C 5.9 % (<5.7)
[2024-06-13 18:41] LABS: Thyroid Stimulating Hormone 0.824 uIU/mL (0.465-4.680)
== END 2024-06-13 09:45 | disposition home or self-care (01) ==
LOC: ANHGOSHLAB 09:45
PROVIDERS: PCP Student in an Organized Health Care Education/Training Program; Visit Provider Student in an Organized Health Care Education/Training Program
DX: R53.83 Other fatigue (principal); F41.8 Other specified anxiety disorders; R73.03 Prediabetes; E78.5 Hyperlipidemia, unspecified
CPT/HCPCS: 36415; 80061; 82607; 83036; 84443; 85025

== ENCOUNTER 2025-02-09 09:31 | Outpatient (CLI) | payer OTHER, SELFPAY ==
--- NOTE | ~2025-02-09 | MM_ITS ---
EXAMINATION: MM screening earl BI w steve HISTORY: Screening TECHNIQUE: Craniocaudal and mediolateral oblique 3-D tomosynthesis images were obtained and synthetic 2-D images were generated. CAD analysis was submitted and interpreted. COMPARISON: Comparison to multiple prior studies sequentially, with oldest reviewed study dated 04/11. BREAST PARENCHYMAL COMPOSITION: Not dense: There are scattered areas of fibroglandular density. FINDINGS: There is no evidence of suspicious mass, calcification, or architectural distortion to sugg est malignancy in either breast. There has been no suspicious interval change. IMPRESSION: 1. No mammographic evidence of malignancy. 2. Recommend routine screening mammography in one year. Reviewed, dictated and finalized at location A.
--- OUTSIDE RECORDS SUMMARY | 2025-02-09 10:06 | XMS_ITS | Continuity of Care Document ---
Author Name [facility] Organization [facility] Care Team Providers Care Sql Ssrs Ssis Developer Name Role Phone [facility] Unavailable Unavailable Problems Combined list of problems from Department of Defense and Veterans Affairs facilities. It does not include entries that were removed or entered in error. Problem Status Onset Date Problem Type Date of Resolution Comments Source DEPRESSION Active Condition Pt herlinda cope taking Wellbutrin, has difficulty sleeping at times, , pt states she is moving in 3 weeks to [place], spouse recently ETS frommilitary. Pt has list of off post counsleors, advised pt that due to her recent move, I did not want to disocntinue Wellbutrinand start pt on a new medication at this time, once she is settled at her new location in 3 weeks to f/u with new PCM if s/s not improved with added trazadone. DoD CANDIDIASIS VAGINAL Inactive Condition D oD CELLULITIS Active Condition resolvedf ollow up as needed DoD visit for: postsurgical exam Inactive Condition DoD Laboratory Studies Inactive Condition f /u on lipid panel results. DoD OVARIAN NEOPLASM Active Condition - I ndication for surgery: persistant ovarian complex ovarian cyst (probable dermoid)- Planned procedure: laparoscopy (ovarian cystectomy vs. oophorectomy)- Counseled patient about the indications, alternatives (continued observation with serial u/s), and risk of surgery. Risk discussed included infection, bleeding (possible need for transfusion), visceral injury (to include bowel, bladder, ureters, major vessels or nerves), pain, or anesthesia risk to include . Large abdominal incision with prolonged hospital stay may be required if visceral injury were to occur or unable to complete surgery the laparoscopic. Patient expressed understanding and desires to proceed with the planned procedure.~I have very low suspicion for malignancy, however if malignancy encountered, patient would be referred to oncologist after surgery with possible need for additional surgery.- Surgery date = - Surgical services pre-op today- Fleet phospho-soda bowel prep & clear liquid diet day prior to surgery, NPO after midnight DoD anxiety Active Condition given list of offpost providers for counseling; pt wishes to try wellbutrin (no contraindications ); advised of poss side effects and need to titrate on and titrate off; she contracts for safety; if sx worsen return sooner otherwise dimitris in 6 weeks DoD Overweight Active Condition spent fro m 1030 to 1110 educating pt on appropriate diet/exercise with target HR reinforced; also encouraged pt to f/u with psych for binge eating and other psychologic sx; she agrees to do so; DoD HYPERLIPIDEMIA Active Condition see c omment below - she refused nutrition consult due to prior neg. experience DoD visit for: administrative purpose Inactive Condition DoD STYE (HORDEOLUM EXTERNUM) Inactive Condition rt DoD GASTROENTERITIS Active Condition DoD IRRITABLE BOWEL SYNDROME Active Condition DoD SHOULDER STRAIN Inactive Condition DoD SINUSITIS Active Condition DoD Patient Education - Dietary Inactive Condition DoD Cervical Pap Smear Inactive Condition Do D SKIN NEOPLASM Active Condition multip le lesions need to be eval by derm DoD ROUTINE GYNECOLOGICAL EXAM WITH CERVICAL PAP SMEAR Active Condition DoD abdominal pain in the central upper belly (epigastric) Inactive Condition DoD BILIARY DYSKINESIA Active Condition DoD Aftercare Following Surgery Of Digestive System Active Condition DoD abdominal pain Inactive Condition DoD ACROCHORDON Active Condition DoD VARICOSE VEINS Active Condition DoD visit for: issue repeat prescription Inactive Condition DoD PIGMENTED NEVUS Active Condition DoD Patient Counseling: Inactive Condition Pt ed on test and exam results, disease prevention, BSE, adult immunizations, control methods and osteoporosis. DoD Medications Combined list of outpatient medications from Department of Defense and Veterans Affairs facilities.Medications provided include 1) outpatient medications from the last 15 months, and 2) patient-reported medications. Medication Details Route Status Patient Instructions Prescription Expires Prescription Number Last Dispense Date Ordering Provider Order Date Order Qty Source BUPROPION XL (bupropion HCl), 300 MG, TAB ER 24H, ORAL, LISA PHARMACEU, 500 ea. BOTTLE Active [id number] 2023 90 Pharmac y Data Transac tion Service Facilit y FLUTICASONE PROPIONATE (FLUTICASON E PROPIONATE) , 50MCG, SPRAY SUSP, NASAL, ROD [facility]S., 16 g AER W/ADAP Cancele d [id number] : 2023 0 Pharmac y Data Transac tion Service Facilit y PHENTERMINE HCL (PHENTERMIN E HCL), 15MG, CAPSULE, ORAL, [employer] 100 ea. BOTTLE Active [id number] 4 2023 30 Pharmac y Data Transac tion Service Facilit y Allergies, Adverse Reactions, Alerts Combined list of allergies from Department of Defense and Veterans [facility] facilities. It does not include entries that were removed or entered in error. Substance Category Reaction Severity Reaction type Status Date Reported Comments Source No Known Allergies Drug allergy (disorder) active 7 Jose Mc [place] Encounters Combined list of: 1) Encounters from Department of Veterans Affairs facilities going backup to the last 18 months, not all [place] inpatient encounters are included; 2) Encounters from the Department of [facility] facilities going backup to 280 months. Location Location Details Encounter Type Encounter Number Reason For Visit Attending Provider ADM Date DC Date Status Disposition Source [facility] [place]([facility]) OUTPATIENT [id number] DEANNA CHURCH 06/24 Released w/o Limitations [facility] [employer]) [facility] Dominic MD([facility]) OUTPATIENT [id number] ABDOMIN AL PAIN NIKITA JENSEN 06/06 Released w/o Limitations [facility] [employer] [place] [place] [facility] Dominic [place]([facility]) OUTPATIENT [id number] f/u on on ibs per MIGUEL Hand 07/03 Released w/o Limitations [facility] [employer] [place] [place] [facility] [place] TELE CONSULT [id number] MIGUEL REBOLLAR 07/14 [facility] [employer] [place] [place] [facility] [place] [place]([facility] OUTPATIENT [id number] MOLES/S PIDER MIGUEL CHAUHAN 07/26 Released w/o Limitations [facility] [employer] [place] [facility] [place]([facility]) OUTPATIENT [id number] gerardo rogers polyps ABIGAIL STEWART NANCY 08/01 Released w/o Limitations [facility] [employer] [place] [employer] [place]) [place] [id number] FU ON HILARYBLJolly VALERIOER ABIGAIL STEWART NANCY 09/26 Released w/o Limitations [facility] [employer] [place] [place] [facility] [employer] [place] TELE CONS[place] [id number] Hida scan results please call patient no appts open at this time. TERRYABIGAIL NANCY 10/12 [facility] [employer] [place] [facility] [employer] [place] [id number] GERARDO STEWART ABIGAIL NANCY 11/08 Released w/o Limitations [facility] [employer] [place] [place] [place] [facility] [employer] [place]) [place] [id number] FU GERARDO VALERIOER/WA LKIN ABIGAIL STEWART NANCY 12/12 Released w/o Limitations [facility] [employer] [place] [place] [place] [facility] [employer] [place] [id number] PAIN IN ABDOMIN STEVE ABREU 01/08 Released w/o Limitations [facility] [employer] [place] [facility] [employer] [place]) [place] [id number] PAP (LAST PAP JUN 2004) RAJESH BELTRÁN 02/13 Released w/o Limitations [facility] [employer] [place] [facility] [employer] [place] TELE CONSULT [id number] sophiel lipids MATIAS MCKEON 02/28 [facility] [employer] [place] [facility] [employer] [place]LE CONSULT [id number] US results RAJESH BELTRÁN W. 03/07 [facility] [employer] [place] [facility] [employer] [place]) [place] [id number] HYPERLI PIDEMIA work patito NOBLE RODRIGUES oJlly 03/12 Released w/o Limitations [facility] [employer] [facility] [employer] [place] OUTPATIENT [id number] ovarian mass and endomet rial thicken ing ISAAC HOWARD S 03/13 Released w/o Limitations [facility] [employer] [place] [facility] [place] TELE CONSULT [id number] u/s results ISAAC HOWARD 05/03 [facility] [employer] [place] [facility] [employer] [place] [id number] BLOOD IN STOOL, PAIN IN RIGHT SHOULDE R KENIAMONIQUEJENNYFERPRINCE BURGER 07/09 Released w/o Limitations [facility] [employer] [place] [facility] [place]) OUTPATIENT [id number] triage sheet / 1050 / f/u KENIAMONIQUEJENNYFER JENNYFER 07/10 Released w/o Limitations [facility] [employer] [place] [facility] [employer]) TELE CONSULT [id number] PATIENT NEEDS FOR YOU TO GIVE HER A CALL NEEDS TO DISCUSS SOMETHI NG WITH YOU@931 JAD CUI 09/24 [facility] [employer] [place] [facility] [employer] [place]) TELE CONSULT [id number] lipid JAD CUI 10/19 [facility] [employer] [place] [facility] [employer] [place] OUTPATIENT [id number] WT GAIN/CH KAYLIE OMERRAJESH Riley W. 10/23 Released w/o Limitations [facility] [employer] [place] [facility] [employer] [place] TELE CONSULT [id number] F/U APPT FOR SURGERY . PLEASE CALL ON CELL#[phone], OUT OF TOWN. ISAAC HOWARD 11/16 [facility] [employer] [place] [facility] [employer] [place] TELE CONSULT [id number] PT NEEDS YOU TO CALL HER, DR. HOWARD REFERRE D HER TO YOU FOR A U/S, CIRA EVELINA Traci 11/26 [facility] [employer] [facility] [employer] [place] OUT[place]IENT [id number] F/U ovarian cyst per EVELINA Jean 01/11 Released w/o Limitations [facility] [employer] [place] [facility] [employer] OUT[place]IENT [id number] OIL DIPPER Pre-Op CIRA EVELINA Traci 01/28 Released w/o Limitations [facility] [employer] [place] [facility] [employer] [place] TELE CONSULT [id number] abnorma LYNN Mccray A 01/31 [facility] [employer] [place] [facility] [employer] [place] [id number] fol elevate d Chol level LUI COTTO. 02/07 Released w/o Limitations [facility] [employer] [place] [facility] [employer] [place] OUTPATIENT [id number] Per Dr Tricia DENIS EVELINA Traci 02/07 Released w/o Limitations [facility] [employer] [facility] [employer] OUT[place] [id number] w/i per tricia DENISEVELINA Traci 02/15 [facility] Limitations [facility] [place] [place]antell fernandes [place] OUT[place] [id number] sore throat, headach e LUI COTTO. 07/24 Released w/o Limitations [place] [facility] Procedures Combined list of: 1) Procedures from Department of Veterans Affairs facilities going back up to thelast 18 months, not all [place] non-surgical procedures are included; 2) All procedures from the Department of Defense facilities. Procedure Procedure Type Code Date Perfomer Karan German e NONINVASIVE EAR OR PULSE OXIMETRY FOR OXYGEN SATURATION; SINGLE DETERMINATION 07/24/2007 DoD POSTOPERATIVE FOLLOW-UP VISIT, NORMALLY INCLUDED IN THE SURGICAL PACKAGE, INDICATE THAT EVALUATION & MANAGEMENT SERVICE WAS PERFORMED DURING A POSTOPERATIVE PERIOD REASON RELATED ORIGINAL PROCEDURE 02/07/2007 DoD UNLISTED SPECIAL SERVICE, PROCEDURE OR REPORT 01/31/2007 DoD MEDICAL NUTRITION THERAPY; INITIAL ASSESSMENT AND INTERVENTION, INDIVIDUAL, [id number] WITH THE PATIENT, EACH 15 MINUTES 03/12/2006 DoD SCREENING PAPANICOLAOU SMEAR; OBTAINING, PREPARING AND CONVEYANCE OF CERVICAL OR VAGINAL SMEAR TO LABORATORY 02/13/2006 DoD POSTOPERATIVE FOLLOW-UP VISIT, NORMALLY INCLUDED IN THE SURGICAL PACKAGE, INDICATE THAT EVALUATION & MANAGEMENT SERVICE WAS PERFORMED DURING A POSTOPERATIVE PERIOD REASON RELATED ORIGINAL PROCEDURE 12/12/2005 DoD UNLISTED SPECIAL SERVICE, PROCEDURE OR REPORT 11/29/2005 DoD NONINVASIVE EAR OR PULSE OXIMETRY FOR OXYGEN SATURATION; SINGLE DETERMINATION 06/04/2005 [facility] TYPHOID VACCINE, CAPSULAR POLYSACCHARIDE (VICPS), FOR INTRAMUSCULAR USE 06/19/2003 DoD Pulse Oximetry Pulse Oximetry [id number] 07/24/2007 LUI CEDILLO. DoD Streptococcus Direct Screen Streptococcus Direct Screen [id number] 07/24/2007 LUI COTTO. DoD Postoperative Visit, Without Charge Postoperative Visit, Without Charge [id number] 02/07/2007 EVELINA DENIS [facility] Medical Nutrition Therapy Initial A e ment, Intervention Medical Nutrition Therapy Initial Assessment, Intervention [id number] 03/12/2006 NOBLE RODRIGUES DoD Screening papanicolaou smear; obtaining, preparing and conveyance of cervical or vaginal smear to laboratory 02/14/2006 RAJESH BELTRÁN [facility] Postoperative Visit, Without Charge Postoperative Visit, Without Charge [id number] 12/12/2005 ABIGAIL STEWART [facility] Screening papanicolaou smear; obtaining, preparing and conveyance of cervical or vaginal smear to laboratory 06/24/2004 DEANNA FERNÁNDEZ [facility] Social History Combined list of available smoking, tobacco, and other social history from Department of Defense and Veterans Affairs facilities. Social History Type Response Date Comment Sourc e This section is an empty social history section. DoD
--- OUTSIDE RECORDS SUMMARY | 2025-02-09 10:06 | XMS_ITS | Clinical Summary ---
Author Organization [facility] Address [address] [place] [address] Care Team Providers Care Manager Investment Name Role Phone Juan Miguel Jean MD Primary Care Provider Allergies Active Allergy Reactions Criticality Noted Date Comments Sulfa (Sulfonamide Antibiotics) Hives High 10/2021 Medications atorvastatin (LIPITOR) 20 mg tablet Take 20 mg by mouth daily. Active buPROPion HCL (WELLBUTRIN XL) 300 mg Extended Release 24 hour tablet Take 300 mg by mouth daily in the morning. Active spironolactone (ALDACTONE) 100 mg tablet Take 100 mg by mouth daily. Active traZODone (DESYREL) 50 mg tablet Take 50 mg by mouth daily at bedtime. Active Active Problems No known active problems Social History Tobacco Use Types Packs/Day Years Used Date Smoking Tobacco: Never Smokeless Tobacco: Never Tobacco Cessation:Counseling Given: Not Answered Comments Unknown Sex and Gender Information Value Date Recorded Sex Assigned at Not on file Legal Sex Female 9:59 AM CDT Gender Identity Not on file Sexual Orientation Not on file Last Filed Vital Signs Vital Sign Reading Time Taken Comments Blood Pressure 133/82 06/29/2022 1:45 PM CDT Pulse 88 06/29/2022 1:45 PM CDT Temperature 36.2 C (97.2 F) 06/29/2022 1:45 PM CDT Respiratory Rate 20 06/29/2022 1:45 PM CDT Oxygen Saturation 97% 06/29/2022 1:45 PM CDT Inhaled Oxygen Concentration - - Weight 110.9 kg (244 lb 6.4 oz) 06/29/2022 1:45 PM CDT Height 170.2 cm (5' 7) 06/29/2022 1:45 PM CDT Body Mass Index 38.28 06/29/2022 1:45 PM CDT Plan of Treatment Health Maintenance Due Date Last Done Comments DTAP/TDAP/TD VACCINES (1 - Tdap) 12/16/1986 HEPATITIS B VACCINES (1 of 3 - 19+ 3-dose series) 11/26 HPV/Cotest (21-29) 12/16/1988 CERVICAL CANCER SCREENING 12/16/1997 HPV/Cotest (30-65) 12/16/1997 PAP SMEAR 12/16/1997 BREAST CANCER SCREENING 2007 COLORECTAL SCREENING 12/16/2012 Colorectal Cancer Screening 12/16/2012 FIT-DNA Q 3 years 12/16/2012 FIT/FOBT Q 1 year 12/16/2012 Flex Sig/CT Colonography Q 5 years 12/16/2012 ZOSTER VACCINE (1 of 2) 12/16/2017 INFLUENZA VACCINE (#1) 2024 Insurance Care Teams Manager Investment Relationship Specialty Start Date End Date Juan Miguel Jean MD [address] [place] [address] PCP - General Family Practice 06/16/22
== END 2025-02-09 09:32 | disposition home or self-care (01) ==
PROVIDERS: PCP Student in an Organized Health Care Education/Training Program; Visit Provider Family Medicine
DX: Z12.31 Encounter for screening mammogram for malignant neoplasm of breast (principal); R92.323 Mammographic fibroglandular density, bilateral breasts
CPT/HCPCS: 77063; 77067